=== PATIENT | female | born 1980 | race Hispanic/Latino ===

== ENCOUNTER 2019-05-17 11:06 | Outpatient (CLI) | payer OTHER ==
--- NOTE | 2019-05-17 12:04 | ULT ---
GALLBLADDER ULTRASOUND: HISTORY: Right upper quadrant abdominal pain FINDINGS: The liver demonstrates homogeneous echotexture without focal mass or intrahepatic biliary ductal dila tation. No gallbladder wall thickening or pericholecystic fluid are seen. There are multiple mobile shadowing gallstones. The right kidney and visualized portions of the pancreas are normal. The common duct [id number] in diameter. No free fluid is seen in the Marroquin's pouch. IMPRESSION: Cholelithiasis.
== END 2019-05-17 11:07 | disposition home or self-care (01) ==
LOC: SCSULT 11:06
PROVIDERS: ATTEND Family Medicine
DX: R10.11 Right upper quadrant pain (principal); K80.20 Calculus of gallbladder without cholecystitis without obstruction
CPT/HCPCS: 76705

== ENCOUNTER 2019-06-18 06:07 | Outpatient (CLI) | payer OTHER ==
[2019-06-18 09:26] LABS: #Eosinphils 0.1 thou/uL (0.0-0.7); #Lymphocytes 1.9 thou/uL (1.20-3.40); #Monocytes 0.4 thou/uL (0.11-0.59); #Neutrophils 5.9 thou/uL (1.40-6.50); %Basophils 0.5 % (0.0-1.0); %Eosinophils 1.5 % (0.0-10.0); %Lymphocytes 22.7 % (21.0-51.0); %Monocytes 5.2 % (0.0-10.0); %Neutrophils 70.1 % (42.0-75.0); Hemoglobin 14.1 g/dL (12.0-16.0); Mean Corpuscular HGB CONC 33.2 g/dL (32.0-36.0); Mean Corpuscular Hemoglobin 28.6 pg (27.0-31.0); Mean Corpuscular Volume 86.2 fL (78.0-98.0); Mean Platelet Volume 9.1 fL (7.4-10.4); Platelet Count 270 thou/uL (130-400); RBC Distribution Width 12.3 % (11.5-14.5); Red Blood Cell (RBC) Count 4.94 mill/uL (4.20-5.40); White Blood Cell (WBC) Count 8.3 thou/uL (4.8-10.8)
[2019-06-18 09:35] LABS: BHCG - Serum Negative (NEGATIVE)
[2019-06-18 09:36] LABS: Pregs Control Background? CLEAR/WHITE (CLR/WHITE); Pregs Control Bar Appear? YES (CONTROL BAR)
[2019-06-18 09:50] LABS: ALT (SGPT) 13 U/L (8-55); AST (SGOT) 15 U/L (5-34); Albumin 4.5 g/dL (3.5-5.0); Alkaline Phosphatase 79 U/L (40-110); Anion Gap 12 mmol/L (10-20); BUN (Urea Nitrogen) 11 mg/dL (7.0-18.7); Bilirubin, Total 1.1 mg/dL (0.2-1.2); Calc. Creatinine Clearance 0 mL/min (70-130); Carbon Dioxide 23 mmol/L (22-29); Chloride 108 mmol/L (98-107); Estimated GFR-MDRD Greater than 90; Globulin 2.9 g/dL (2.4-3.5); Glucose 97 mg/dL (70-105); Potassium 4.4 mmol/L (3.5-5.1); Protein, Total 7.4 g/dL (6.0-8.3); Sodium 139 mmol/L (136-145)
== END 2019-06-18 06:08 | disposition home or self-care (01) ==
LOC: LABBT 06:07
PROVIDERS: ATTEND Surgery
DX: Z01.812 Encounter for preprocedural laboratory examination (principal); K80.20 Calculus of gallbladder without cholecystitis without obstruction
CPT/HCPCS: 80053; 84703; 85025

== ENCOUNTER 2019-10-19 06:17 | Inpatient (IN) | payer OTHER ==
[2019-10-19] MEDS ORDERED: Ketorolac Tromethamine 30 MG/ML VIAL ONE (06:28)
[2019-10-19] MEDS ORDERED: Fentanyl 100 MCG/2 ML VIAL ONE ×3 (06:37→09:58)
[2019-10-19] MEDS ORDERED: Lidocaine 1% w/Epinephrine 1:100K 20 ML VIAL ONE (06:47)
[2019-10-19] MEDS ORDERED: Bupivacaine 0.25% HCL 30 ML VIAL ONE (06:47)
[2019-10-19] MEDS ORDERED: Midazolam HCl 2 mg/2 ml Vial ONE (07:55)
[2019-10-19] MEDS ORDERED: Iopamidol 50 ML FS ONE (08:37)
--- NOTE | 2019-10-19 09:30 | RAD ---
OPERATIVE CHOLANGIOGRAM: Date: 10/19/2019 INDICATION: Intraoperative cholangiogram study during cholecystectomy procedure. FINDINGS/IMPRESSION: The common bile duct is opacified. There is a filling defect seen distally near the ampulla suggestin g retained stone. POS: AH
[2019-10-19] MEDS ORDERED: Morphine 2 MG/ML VIAL SLOW IVP PRN (09:52)
[2019-10-19] MEDS ORDERED: traMADol HCl 50 MG TAB PO PRN ×4 (09:52→11:24)
[2019-10-19] MEDS ORDERED: HYDROcodone/Acetaminophen 5/325 mg Tablet PO PRN ×3 (09:53→11:23)
[2019-10-19] MEDS ORDERED: Acetaminophen 325 MG TAB PO PRN ×4 (09:54→11:22)
[2019-10-19] MEDS ORDERED: Ibuprofen 200 MG TAB PO PRN ×5 (09:55→11:20)
[2019-10-19] MEDS ORDERED: Promethazine 25 MG TAB PO PRN ×2 (09:57→11:19)
[2019-10-19] MEDS ORDERED: Ondansetron PF 4 MG/2 ML Vial IVP PRN ×2 (09:57→11:19)
[2019-10-19] MEDS ORDERED: Promethazine HCl 25 MG/ML VIAL IM/IV PRN (09:59)
[2019-10-19] MEDS ORDERED: Non-Formulary Medication 1 EACH PO PRN (09:59)
[2019-10-19] MEDS ORDERED: Ondansetron HCl/PF 4 MG/2 ML Vial IVP PRN (09:59)
[2019-10-19] MEDS ORDERED: Sodium Chloride 0.9% 1,000 ML IV SCH (10:00)
[2019-10-19] MEDS ORDERED: Pantoprazole 40 MG VIAL IVP SCH ×2 (10:00→11:30)
[2019-10-19 11:21] VITALS: BMI 24.5
[2019-10-19] MEDS: Morphine 2 MG/ML VIAL SLOW IVP PRN ×2 (11:31→14:39)
[2019-10-19] MEDS: Sodium Chloride 0.9% 1,000 ML IV SCH ×3 (11:32→23:59)
[2019-10-19] MEDS ORDERED: PROPOFOL 200 MG/20 ML VIAL ONE (12:09)
[2019-10-19] MEDS ORDERED: PHENYLEPHRINE-NS 100 MCG/ML 10 ML SYRINGE ONE (12:09)
[2019-10-19] MEDS ORDERED: Lidocaine 1% PF 5 ML VIAL ONE (12:09)
[2019-10-19] MEDS ORDERED: Rocuronium Bromide 10 MG/ML (10ML VIAL) ONE (12:09)
[2019-10-19] MEDS ORDERED: Glycopyrrolate 0.2 MG/ML 5 ML SYRINGE ONE (12:09)
[2019-10-19] MEDS ORDERED: Dexamethasone 20 MG/5 ML VIAL ONE (12:09)
[2019-10-19] MEDS ORDERED: Ondansetron PF 4 MG/2 ML Vial ONE (12:09)
[2019-10-19] MEDS: HYDROcodone/Acetaminophen 5/325 mg Tablet PO PRN ×2 (13:51→23:57)
--- NOTE | 2019-10-19 15:29 | CON ---
DATE OF CONSULTATION: 10/19/2019 REASON FOR CONSULTATION: Choledocholithiasis seen on intraoperative cholangiogram. CONSULTING PROVIDER: Logan Garcia MD HISTORY OF PRESENT ILLNESS: The patient is a 39-year-old female with no significant past medical history, who was undergoing laparoscopic cholecystectomy as an elective outpatient procedure earlier today. However, during the laparoscopic cholecystectomy, the size of the cystic duct was noted to be significantly enlarged with an intraoperative cholangiogram then performed showing a filling defect in the distal common bile duct, consistent with choledocholithiasis. With this finding, the patient was then subsequently admitted to the hospital for further evaluation and in anticipation of ERCP for removal given the higher risk of cholangitis with this finding. On speaking with the patient today, she states that she does have some increased right upper quadrant abdominal pain following the laparoscopic cholecystectomy earlier, which she characterizes as a throbbing type sensation, is nonradiating and reaching a severity of 5/10. She states that the pain is worse with pressure to the region and better with the use of pain medications thus far. Currently, she denies any nausea, vomiting, fevers, chills, hematemesis, melena, hematochezia, diarrhea, constipation, dysphagia, odynophagia, or recent weight loss. REVIEW OF SYSTEMS: A 10-category review of systems was obtained with all responses negative except for the pertinent positives as listed in HPI. PAST MEDICAL HISTORY: None. PAST SURGICAL HISTORY: 1. Bilateral tubal ligation. 2. Laparoscopic cholecystectomy. FAMILY HISTORY: Denies any GI malignancies. SOCIAL HISTORY: Denies any tobacco, alcohol, or illicit drug use. OUTPATIENT MEDICATIONS: None. ALLERGIES: NO KNOWN DRUG ALLERGIES. PHYSICAL EXAMINATION: VITAL SIGNS: Temperature 97.6, pulse 94, blood pressure 115/78, respiratory rate 16, and saturating 99% on room air. GENERAL: The patient was lying in bed, in no acute distress. Alert and oriented x4, (primarily [place]z-speaking). HEENT: Normocephalic and atraumatic. NECK: Supple. No JVD or scleral icterus noted. CARDIOVASCULAR: Regular rate and rhythm with no discernable murmurs, gallops, or rubs. RESPIRATORY: Clear to auscultation bilaterally with no discernable wheezes or rales. ABDOMEN: Normoactive bowel sounds. Soft and nondistended. Tenderness to palpation in the midepigastric and right upper quadrant only. EXTREMITIES: No cyanosis, clubbing, or edema. LABORATORY DATA: The most recent labs that were available for review are from 10/17/2019, which showed a white blood cell count of 8.8, hemoglobin 13.6, hematocrit 40.8, and platelets 251. Chemistry with a sodium of 141, potassium 4.3, chloride 108, CO2 of 27, BUN 12, creatinine 0.67, glucose 90, AST 15, ALT 14, alkaline phosphatase 73, and total bilirubin 0.7. IMAGING DATA: Intraoperative cholangiogram performed on 10/19/2019, showed the presence of a large filling defect within the distal common bile duct, consistent with choledocholithiasis. ASSESSMENT AND PLAN: The patient is a 39-year-old female with no significant past medical history, presenting for laparoscopic cholecystectomy secondary to cholelithiasis and noted to have choledocholithiasis on intraoperative cholangiogram. Choledocholithiasis: The patient presented today for elective laparoscopic cholecystectomy in light of normal recent labs with no elevation in liver function tests. However, during the laparoscopic cholecystectomy earlier today, she had a significantly dilated cystic duct, which prompted an intraoperative cholangiogram, which showed a filling defect in the distal common bile duct, consistent with choledocholithiasis. At the current time, her symptoms seem to be more related to her recent surgery rather than the presence of choledocholithiasis. However, given the increased risk of biliary obstruction and ascending cholangitis associated with choledocholithiasis, urgent intervention with endoscopic retrograde cholangiopancreatography is indicated. RECOMMENDATIONS: 1. Would continue to trend her LFTs daily while inpatient for signs of biliary obstruction. 2. Would place the patient on a clear liquid diet today and n.p.o. at midnight in anticipation of the ERCP. 3. Would plan for ERCP tomorrow morning for sphincterotomy and balloon extraction of the choledocholithiasis. 4. Pain control per primary team. 5. Agree with IV fluid administration for the time being. 6. Given her normal LFTs and nonseptic status, administration of prophylactic antibiotics is not necessarily indicated at this time, but I would have a low threshold to place her on antibiotics if she generates a fever or has elevated LFTs. We will continue to follow. Please call with any questions. Job ID: [id number]
[2019-10-20] MEDS: HYDROcodone/Acetaminophen 5/325 mg Tablet PO PRN (05:44)
[2019-10-20 05:46] LABS: #Lymphocytes 2.1 thou/uL (1.20-3.40); #Monocytes 0.7 thou/uL (0.11-0.59); #Neutrophils 6.5 thou/uL (1.40-6.50); %Basophils 0.1 % (0.0-1.0); %Eosinophils 0.1 % (0.0-10.0); %Lymphocytes 22.1 % (21.0-51.0); %Monocytes 7.9 % (0.0-10.0); %Neutrophils 69.8 % (42.0-75.0); Hemoglobin 12.8 g/dL (12.0-16.0); Mean Corpuscular HGB CONC 33.1 g/dL (32.0-36.0); Mean Corpuscular Hemoglobin 28.3 pg (27.0-31.0); Mean Corpuscular Volume 85.6 fL (78.0-98.0); Mean Platelet Volume 8.9 fL (7.4-10.4); Platelet Count 238 thou/uL (130-400); Red Blood Cell (RBC) Count 4.53 mill/uL (4.20-5.40); White Blood Cell (WBC) Count 9.3 thou/uL (4.8-10.8)
[2019-10-20 06:12] LABS: ALT (SGPT) 23 U/L (8-55); AST (SGOT) 25 U/L (5-34); Albumin 3.7 g/dL (3.5-5.0); Alkaline Phosphatase 57 U/L (40-110); Anion Gap 11 mmol/L (10-20); BUN (Urea Nitrogen) 5 mg/dL (7.0-18.7); Calc. Creatinine Clearance 124 mL/min (70-130); Calcium 8.1 mg/dL (7.8-10.44); Carbon Dioxide 22 mmol/L (22-29); Chloride 109 mmol/L (98-107); Estimated GFR-MDRD Greater than 90; Globulin 2.7 g/dL (2.4-3.5); Glucose 93 mg/dL (70-105); Lipase 4 U/L (8-78); Potassium 4.1 mmol/L (3.5-5.1); Protein, Total 6.4 g/dL (6.0-8.3); Sodium 138 mmol/L (136-145)
[2019-10-20] MEDS ORDERED: Iopamidol 50 ML FS ONE (07:41)
[2019-10-20] MEDS ORDERED: Midazolam HCl 2 mg/2 ml Vial ONE (07:50)
[2019-10-20] MEDS ORDERED: Scopolamine 1.5 mg/72 hour Patch ONE (07:50)
[2019-10-20] MEDS ORDERED: Promethazine HCl 25 MG/ML VIAL ONE (07:55)
[2019-10-20] MEDS ORDERED: Fentanyl 100 MCG/2 ML VIAL ONE (07:55)
[2019-10-20] MEDS ORDERED: Indomethacin 50 MG SUPP ONE (08:14)
[2019-10-20] MEDS ORDERED: HYDROmorphone 2 MG/ML VIAL SLOW IVP PRN (08:45)
[2019-10-20] MEDS ORDERED: Promethazine HCl 25 MG/ML VIAL IM PRN (08:45)
[2019-10-20] MEDS ORDERED: PACU-Morphine 4MG/ML VIAL SLOW IVP PRN (08:45)
[2019-10-20] MEDS ORDERED: Ondansetron HCl/PF 4 MG/2 ML Vial IVP PRN (08:45)
[2019-10-20] MEDS ORDERED: Promethazine HCl 25 MG/ML VIAL SLOW IVP PRN (08:45)
[2019-10-20] MEDS ORDERED: Pantoprazole 40 MG VIAL IVP SCH (09:00)
--- NOTE | 2019-10-20 09:26 | RAD ---
ERCP 5 views: DATE: 10/20/2019 HISTORY: 39-year-old female with choledocholithiasis COMPARISON: Intraoperative cholangiogram of 10/19/2019 FINDINGS: Contrast opacification of mildly dilated common bile duct, common hepatic duct, and left and right he patic ducts. Filling defect, representing stone, demonstrated at most inferior portion of common bile duct on the prior study, is first displaced superiorly into the mid common duct, but is later di splaced inferiorly by sweeping of balloon in the common duct. On final image, there is interval drainage of some of the contrast material in the common duct, which then spills into the duodenal lum en. IMPRESSION: Ongoing balloon sweeping removal of choledocholithiasis, with apparent success.
--- NOTE | 2019-10-20 09:46 | OP ---
DATE OF PROCEDURE: 10/20/2019 PROCEDURES PERFORMED: Endoscopic retrograde cholangiopancreatography with sphincterotomy and removal of biliary calculi. INDICATIONS FOR PROCEDURE: Choledocholithiasis seen on intraoperative cholangiogram, status post laparoscopic cholecystectomy. DESCRIPTION OF PROCEDURE: After the risks and benefits of the procedure were explained to the patient including risks of bleeding, infection, perforation, reactions to anesthesia, aspiration, post ERCP pancreatitis, and/or pain, informed consent was obtained. The patient was then taken to the endoscopy suite, where general anesthesia was administered followed by endotracheal tube intubation. Once the patient was intubated and sedated, she was maneuvered into the prone position in anticipation of the ERCP. Once in adequate position, the standard duodenoscope was introduced into the mouth with intubation of the esophagus, stomach, and the proximal small intestines with the findings listed below. The patient tolerated the procedure well with no immediate perioperative complications. Upon conclusion of the procedure, all equipment was removed from the patient and she was transferred to PACU in satisfactory condition. EGD FINDINGS: Limited views were obtained from the upper GI tract during the EGD portion of this exam due to the side-viewing nature of the duodenoscope. Of the mucosa visualized, normal-appearing mucosa was seen in the proximal, mid, and distal esophagus within the stomach. There were multiple areas of increased mucosal erythema seen in the gastric body and extending into the antrum, but no overt ulceration was seen. A few small rust/flesh colored polyps were also seen in the gastric fundus and extending into the body, but did not appear adenomatous. Otherwise, normal-appearing mucosa was seen in the gastric cardia, fundus, along the incisura and within the antrum. Normal-appearing mucosa was seen in both the duodenal bulb and second portion of the duodenum with easy identification of the ampulla of Vater. ERCP FINDINGS: The ampulla of Vater was easily identified within the second portion of the duodenum. Once adequate position was obtained, a 5 mm Ultratome sphincterotome was used to cannulate the ampulla with successful placement of a guidewire within the extrahepatic and subsequently intrahepatic biliary tree. Using the sphincterotome, a cholangiogram was then performed with the common bile duct measuring approximately 1 cm in diameter. A filling defect measuring approximately 8 to 9 mm was also seen in the distal common bile duct consistent with choledocholithiasis. Using the sphincterotome, a generous sphincterotomy was then performed followed by removal of the sphincterotome over the guidewire using exchange technique. The sphincterotome was then exchanged for an 8 to 12 mm biliary balloon, which was then advanced into the common bile duct without difficulty. Using successive balloon sweeps, the common bile duct was swept of debris and the stone was removed again measuring 8 to 9 mm in size and yellow and black in coloration. Further balloon sweeps did not yield any additional stones or debris. An occlusion cholangiogram was then performed near the end of the procedure with good filling of the intrahepatic and extrahepatic biliary tree with no additional filling defects. There was no evidence of biliary leak from the cystic duct stump with the surgical clips in place, at which point, the procedure was terminated and all equipment was removed from the patient. IMPRESSION: 1. Choledocholithiasis with an 8 to 9 mm yellow/black biliary stones, status post successful extraction. RECOMMENDATIONS: 1. We would continue to trend the patient's LFTs for signs of any additional hepatic inflammation. 2. We would monitor the patient clinically for signs of post ERCP pancreatitis. 3. We would advance the patient's diet to clear liquid diet and advance as tolerated afterwards. 4. Pain control per primary team. 5. Continue antibiotics for the next 24 to 48 hours. We will continue to follow. Please call with any questions. Job ID: [id number]
[2019-10-20] MEDS: Pantoprazole 40 MG VIAL IVP SCH (11:26)
[2019-10-20] MEDS ORDERED: Ondansetron PF 4 MG/2 ML Vial ONE (11:32)
[2019-10-20] MEDS ORDERED: Lidocaine 1% PF 5 ML VIAL ONE (11:32)
[2019-10-20] MEDS ORDERED: PROPOFOL 200 MG/20 ML VIAL ONE (11:32)
[2019-10-20] MEDS ORDERED: Rocuronium Bromide 10 MG/ML (10ML VIAL) ONE (11:32)
[2019-10-20] MEDS ORDERED: Dexamethasone 20 MG/5 ML VIAL ONE (11:32)
[2019-10-20] MEDS ORDERED: Ketorolac Tromethamine 30 MG/ML VIAL ONE (11:32)
[2019-10-20] MEDS ORDERED: Glycopyrrolate 0.2 MG/ML 5 ML SYRINGE ONE (11:32)
--- NOTE | 2019-10-20 12:51 | PDOC.GSPN ---
Surgery Progress Note: Subj - Subjective Narrative: Patient underwent ERCP today with successful removal of large common bile duct stone. She will stay in the hospital for an additional 24 hours of IV antibiotics. Morning labs are ordered to trend her LFTs and pancreatic enzymes. Surgery Progress Note: Obj - Vital signs Vital signs: Vital Signs - Most Recent Temp Pulse Resp BP Pulse Ox 96.7 F L 60 16 133/81 100 10/20/19 10:05 10/20/19 10:05 10/20/19 10:05 10/20/19 10:05 10/20/19 11:25 Surgery Progress Note: Results - Labs Result Diagrams: 10/20/19 05:28 10/20/19 05:28 Lab results: Laboratory Results - last 24 hr 10/20/19 10/20/19 05:28 05:28 WBC 9.3 RBC 4.53 Hgb 12.8 Hct 38.7 MCV 85.6 MCH 28.3 MCHC 33.1 RDW 12.0 Plt Count 238 MPV 8.9 Neutrophils % 69.8 Lymphocytes % 22.1 Monocytes % 7.9 Eosinophils % 0.1 Basophils % 0.1 Neutrophils # 6.5 Lymphocytes # 2.1 Monocytes # 0.7 H Eosinophils # 0.0 Basophils # 0.0 Sodium 138 Potassium 4.1 Chloride 109 H Carbon Dioxide 22 Anion Gap 11 BUN 5 L Creatinine 0.56 L Estimated GFR (MDRD) Greater than 90 Glucose 93 Calcium 8.1 Total Bilirubin 1.0 AST 25 ALT 23 Alkaline Phosphatase 57 Serum Total Protein 6.4 Albumin 3.7 Globulin 2.7 Albumin/Globulin Ratio 1.4 Lipase 4 L
[2019-10-20] MEDS: Ibuprofen 200 MG TAB PO PRN ×2 (13:43→22:40)
[2019-10-20] MEDS: Sodium Chloride 0.9% 1,000 ML IV SCH (18:07)
[2019-10-21] MEDS: Sodium Chloride 0.9% 1,000 ML IV SCH (04:32)
[2019-10-21 05:18] LABS: #Lymphocytes 2.9 thou/uL (1.20-3.40); #Monocytes 0.6 thou/uL (0.11-0.59); #Neutrophils 5.5 thou/uL (1.40-6.50); %Basophils 0.4 % (0.0-1.0); %Eosinophils 0.1 % (0.0-10.0); %Monocytes 6.5 % (0.0-10.0); %Neutrophils 60.9 % (42.0-75.0); Mean Corpuscular HGB CONC 33.4 g/dL (32.0-36.0); Mean Corpuscular Hemoglobin 28.8 pg (27.0-31.0); Mean Corpuscular Volume 86.1 fL (78.0-98.0); Mean Platelet Volume 9.1 fL (7.4-10.4); Platelet Count 221 thou/uL (130-400); RBC Distribution Width 12.1 % (11.5-14.5); Red Blood Cell (RBC) Count 4.16 mill/uL (4.20-5.40)
[2019-10-21 05:43] LABS: ALT (SGPT) 19 U/L (8-55); AST (SGOT) 16 U/L (5-34); Albumin 3.3 g/dL (3.5-5.0); Alkaline Phosphatase 49 U/L (40-110); Anion Gap 10 mmol/L (10-20); BUN (Urea Nitrogen) 8 mg/dL (7.0-18.7); Calc. Creatinine Clearance 127 mL/min (70-130); Calcium 7.8 mg/dL (7.8-10.44); Carbon Dioxide 23 mmol/L (22-29); Chloride 110 mmol/L (98-107); Estimated GFR-MDRD Greater than 90; Globulin 2.4 g/dL (2.4-3.5); Glucose 89 mg/dL (70-105); Lipase 7 U/L (8-78); Potassium 3.6 mmol/L (3.5-5.1); Protein, Total 5.7 g/dL (6.0-8.3); Sodium 139 mmol/L (136-145)
[2019-10-21] MEDS: Ibuprofen 200 MG TAB PO PRN (06:09)
[2019-10-21 08:00] VITALS: BP 111/77; TEMP 98.4
[2019-10-21] MEDS: Pantoprazole 40 MG VIAL IVP SCH (08:02)
--- NOTE | 2019-10-22 07:35 | DIS ---
DATE OF ADMISSION: 10/19/2019 DATE OF DISCHARGE: 10/21/2019 PROCEDURES: 1. Laparoscopic cholecystectomy with intraoperative cholangiogram on 10/19/2019. 2. Endoscopic retrograde cholangiopancreatography with sphincterotomy and stone extraction on 10/20/2019. HISTORY: Ms. Adriana Marshall is a 39-year-old woman who presented for outpatient laparoscopic cholecystectomy. Her LFTs were normal and her ultrasound did not show any bile duct dilatation at the time of her presentation. However, intraoperatively, her bile duct was noted to be dilated, so an intraoperative cholangiogram was performed and this showed a nonobstructing but large stone in her distal common bile duct. She was admitted to the hospital and placed on prophylactic antibiotics and underwent an ERCP with sphincterotomy and stone extraction the following day. Postoperatively, she recovered well with normal LFTs and lipase and has tolerated advancement of diet. She is still a little bit bloated, but passing gas and not nauseated. Her incisions look good and she has only normal postoperative tenderness. She is being discharged home with instructions to follow up in the [facility] Surgery [facility] in 2 to 3 weeks. DISCHARGE MEDICATIONS: Include tramadol and [place] for p.r.n. use. DISCHARGE INSTRUCTIONS: She was also instructed to take stool softener until her bloating has resolved and to minimize narcotic usage and ambulate frequently. She is to avoid lifting more than 20 pounds for the next 2 weeks and to call if she has any problems. Job ID: [id number]
--- NOTE | 2019-10-22 08:25 | PQF ---
CLINICAL DOCUMENTATION CLARIFICATION FORM: Dear : Logan Garcia Date / Time: 10/22/2019 08:24 Please exercise your independent, professional judgment in responding to the clarification form. Clinical indicators are provided on the bottom of this form for your review Please check appropriate box(es): [ ] Associated Diagnosis: Acute kidney failure [ ] Not clinically significant laboratory findings [ ] Other diagnosis [ ] Unable to determine Physician Signature: Date/Time: For continuity of documentation, please document condition throughout progress notes and discharge summary. Thank You. To be completed by CDI/Coding staff for physician review: Present Clinical Indicators - Signs / Symptoms / Labs Results and Location in Medical Record [X] Labs BUN: 10/19=5 10/20=8 Labs 10/19 [X] Labs Creatinine: 10/19=0.56 10/20=0.55 Labs 10/19 [X] Labs GFR: 10/19=greater than 90 10/20=greater than 9 Labs 10/19 [X] she states she does have increased right upper quadrant abdominal pain Consult 10/18 Present Risk Factors Results and Location in Medical Record [X] 39 years old female Consult 10/18 [X] s/p lap cholecystectomy Consult 10/18 [X] choledocholithiasis Consult 10/18 Present Treatments Results and Location in Medical Record [X] IVF MAR 10/18 [X] Laboratory monitoring Lab 10/19 [facility] Signature: Melody Dickinson Phone #: ext [phone] Date/Time: 10/22/2019 08:24 This is a permanent part of the Medical Record [facility]
== END 2019-10-21 11:21 | disposition home or self-care (01) | DRG 446 ==
LOC: SDC 06:17 → SURG A 11:10
PROVIDERS: ADMIT Surgery; ATTEND Surgery
PROC: 0FC98ZZ Extirpation of Matter from Common Bile Duct, Via Natural or Artificial Opening Endoscopic (ICD-10-PCS; principal; 2019-10-20)
PROC: BF101ZZ Fluoroscopy of Bile Ducts using Low Osmolar Contrast (ICD-10-PCS; 2019-10-20)
DX: K80.50 Calculus of bile duct without cholangitis or cholecystitis without obstruction (principal); Z90.49 Acquired absence of other specified parts of digestive tract; Z98.51 Tubal ligation status
CPT/HCPCS: 36415; 47532; 74330; 80053; 83690; 85025; 88304; C9113; J0690; J1100; J1610; J1885; J1956; J2250; J2270; J2405; J2550; J2704; J3010; Q9967; S0020